=== PATIENT | male | born 1955 | race Caucasian/White ===

== ENCOUNTER 2020-05-04 19:40 | Emergency (ER) | payer OTHER ==
[~2020-05-04] VITALS: Ht 180.3 cm; Wt 95.3 kg
--- NOTE | 2020-05-04 20:33 | NUR ---
JOSE FROM HOME FOR C/O SOB S/P DIALYSIS TODAY. REPORTED NEEDED SUPLEMENTAL O2 DURING DIALYSIS. CURRENTLY SATTING 100% ON R/A. PT REPORTED JUST TESTED POSITIVE FOR COVID YESTERDAY. PT WAS PLACED IN BED 17 ER, ON MONITOR,
--- NOTE | 2020-05-04 20:52 | NUR ---
ECG TECH AT BED SIDE, BLOOD DRAWN AND SENT TO LAB
--- NOTE | 2020-05-04 20:56 | NUR ---
AT BED SIDE
[2020-05-04 20:58] LABS: BASOPHILS % (AUTO) 0.8 % (0.0-2.0); EOSINOPHILS % (AUTO) 4.5 % (0.0-6.0); HEMATOCRIT 30 % (39-51); HEMOGLOBIN 10.3 g/dL (13.5-17.5); LYMPHOCYTES # (AUTO) 1.4 /CMM (0.8-4.8); LYMPHOCYTES % (AUTO) 25.7 % (20.0-44.0); MEAN CORPUSCULAR HGB CONC 34 g/dl (31.0-36.0); MEAN CORPUSCULAR VOLUME 91 fL (80-96); MONOCYTES # (AUTO) 0.6 /CMM (0.1-1.30); MONOCYTES % (AUTO) 11.2 % (2.0-12.0); NEUTROPHILS # (AUTO) 3.2 /CMM (1.8-8.9); NEUTROPHILS % (AUTO) 57.8 % (43.0-81.0); PLATELET COUNT (AUTO) 219 /CMM (150-450); RED BLOOD CELL COUNT(AUTO) 3.32 MIL/uL (4.5-6.0); WHITE BLOOD COUNT (AUTO) 5.6 K/uL (4.3-11.0)
[2020-05-04 21:07] LABS: CALCIUM, SERUM 8.6 mg/dL (8.5-10.1); CARBON DIOXIDE 31 mmol/L (21-32); CHLORIDE 100 mmol/L (98-107); CREATININE 4.8 mg/dL (0.6-1.3); GLUCOSE 108 mg/dL (74-106); POTASSIUM 3.2 mmol/L (3.5-5.1); SODIUM SERUM 140 mmol/L (136-145); UREA NITROGEN, BLOOD 34 mg/dL (7-18)
[2020-05-04 21:20] LABS: B-TYPE NATRIURETIC PEPTIDE 4973 PG/ML (0-125)
[2020-05-04 22:46] VITALS: BP 124/79
--- NOTE | 2020-05-04 22:46 | NUR ---
Patient discharged to home in stable condition. Written and verbal after care instructions given. Patient verbalizes understanding of instruction.IV removed. Catheter intact and site benign. Pressure and 4x4 applied to site. No bleeding noted. Pt picked up by , wheeled to car via wheelchair in stable condition
== END 2020-05-04 22:46 | disposition home or self-care (01) ==
LOC: ER 19:57
DX: R06.02 Shortness of breath (principal); R53.1 Weakness; U07.1 COVID-19; I12.0 Hypertensive chronic kidney disease with stage 5 chronic kidney disease or end stage renal disease; N18.6 End stage renal disease; Z99.2 Dependence on renal dialysis; Z88.8 Allergy status to other drugs, medicaments and biological substances
CPT/HCPCS: 36415; 71045-TC; 80048-TC; 83880; 84484-TC; 85025-TC

== ENCOUNTER 2024-11-21 19:16 | Emergency (ER) | payer MEDICARE, OTHER ==
[~2024-11-21] VITALS: Ht 170.2 cm; Wt 154.2 kg
[2024-11-21 19:26] VITALS: TEMP 98.7
[2024-11-21] MEDS ORDERED: GELATIN SPONGE,ABSORBABLE 1 EA SPONGE TP ONE (19:59)
[2024-11-21 22:13] VITALS: BP 140/72; O2SAT 96
== END 2024-11-21 22:13 | disposition home or self-care (01) ==
LOC: ER 19:20
DX: T82.838A Hemorrhage due to vascular prosthetic devices, implants and grafts, initial encounter (principal); I12.0 Hypertensive chronic kidney disease with stage 5 chronic kidney disease or end stage renal disease; E11.22 Type 2 diabetes mellitus with diabetic chronic kidney disease; N18.6 End stage renal disease; E87.8 Other disorders of electrolyte and fluid balance, not elsewhere classified; R06.2 Wheezing; Z88.5 Allergy status to narcotic agent; Z99.2 Dependence on renal dialysis; Y84.1 Kidney dialysis as the cause of abnormal reaction of the patient, or of later complication, without mention of misadventure at the time of the procedure; Y92.89 Other specified places as the place of occurrence of the external cause
CPT/HCPCS: 99282; A6403